=== PATIENT | female | born 1995 | race American Indian/Alaskan Native ===

== ENCOUNTER 2018-03-19 13:41 | Emergency (ER) | payer OTHER, SELFPAY ==
--- OUTSIDE RECORDS SUMMARY | 2018-03-19 13:45 | XMS REPORT ---
:1995 Author Organization eClinicalWorks Care Team Providers Name Role Phone Elayne Elizabeth Provider Role Unavailable Allergies No Known Allergies Problems Problem Type Condition Code Onset Dates Condition Status Assessment -induced hypertension in O13.3 Active third trimester Problem Obesity affecting in O99.213 Active third trimester Problem High-risk in third O09.93 Active trimester Problem -induced hypertension in O13.3 Active third trimester Assessment Obesity affecting in O99.213 Active third trimester Assessment High-risk in third O09.93 Active trimester Problem Abnormal 1st trimester screen O28.9 Active Problem Alpha thalassemia trait D56.3 Active Medications Medication Code Code Instructions Start End Status Dosage System Date Date CitraNatal [facility] [id number] 35-1 & 300 MG August Active as directed Assure Orally once 2017 daily Results No Known Results Summary Purpose eClinicalWorks Submission
--- OUTSIDE RECORDS SUMMARY | 2018-03-19 13:46 | XMS REPORT ---
:1995 Author Organization eClinicalWorks Care Team Providers Name Role Phone Asa Marie Provider Role Unavailable Allergies, Adverse Reactions, Alerts Substance Reaction Event Type N.K.D.A. Info Not Available Non Drug Allergy Problems Problem Type Condition Code Onset Dates Condition Status Problem Alpha thalassemia trait D56.3 Active Problem High-risk in third O09.93 Active trimester Problem Abnormal 1st trimester screen O28.9 Active Problem Other chronic pain G89.29 Active Problem Dorsalgia, unspecified M54.9 Active Problem Encounter for routine Z39.2 Active follow-up Problem -induced hypertension in O13.3 Active third trimester Problem Obesity affecting in O99.213 Active third trimester Problem Encounter for initial prescription Z30.011 Active of contraceptive pills Problem Encounter for care of Z39.1 Active lactating mother Assessment Encounter for initial prescription Z30.011 Active of contraceptive pills Assessment Encounter for routine Z39.2 Active follow-up Assessment Other chronic pain G89.29 Active Assessment Encounter for care of Z39.1 Active lactating mother Assessment Dorsalgia, unspecified M54.9 Active Medications Medication Code System Code Instructions Start Date End Date Status Dosage Marta NDC 0 Active not defined Results Name Result Date Reference Range Unit Abnormality Flag URINALYSIS AUTO W/O SCOPE (83024) ----NIT neg 20180124 ----URO 0.2 20180124 ----PROTEIN belkis 20180124 ----pH 6.0 20180124 ----BLO neg 20180124 ----GLUCOSE neg 20180124 ----ALEXANDRA neg 20180124 ----BILIRUBIN neg 20180124 ----KETONES neg 20180124 ----SPECIFIC GRAVITY 1.010 20180124 TEST URINE ----RESULTS neg 20180128 Summary Purpose eClinicalWorks Submission
[2018-03-19] MEDS ORDERED: KETOROLAC 30 MG/ML INJ ONE (14:47)
--- NOTE | 2018-03-19 14:50 | RAD REPORT ---
EXAM DESCRIPTION: CT - Abdomen Pelvis Wo Contrast - 03/19/2018 2:41 pm CLINICAL HISTORY: Abdominal pain. L flank pain COMPARISON: No comparisons TECHNIQUE: CT imaging of the abdomen and pelvis was performed without contrast. Solid organ, bowel a nd vascular assessment is limited due to lack of IV and oral contrast. All CT scans are performed using dose optimization technique as appropriate and may include automated exposure control or mA/KV adjustment according to patient size. FINDINGS: The lower lung english are clear. The liver, spleen, pancreas, adrenal glands and kidneys are within normal limits for a limited non-co ntrast examination. No bowel obstruction, free air, free fluid or abscess. The appendix is normal. The osseous structures are within normal limits. IMPRESSION: No acute intra-abdominal or pelvic findings. A limited non-contrast examination was performed as detailed.
[2018-03-19 14:56] LABS: Urine Blood NEGATIVE (NEG); Urine Glucose NEGATIVE (NEG); Urine Protein NEGATIVE (NEG); Urine Specific Gravity 1.025 (1.005-1.030); Urine pH 7.5 (5.0-7.0)
[2018-03-19 15:10] LABS: Absolute Lymphocytes (CBC) 1.8 K/uL (0.7-4.9); Absolute Monocytes 0.8 K/uL (0.1-1.3); Absolute Neutrophil 8.4 K/uL (1.8-8.0); Basophils % 0.4 % (0-1.3); Eosinophils % 1.2 % (0-4.4); Hematocrit 42.4 % (36.0-45.0); Lymphocytes % 15.9 % (15.3-44.8); MCH 25.9 pg (27.0-35.0); MCV 79.5 fL (80-100); MPV 8.8 fL (7.6-11.3); Monocytes % 7.1 % (3.3-12.3); RBC Red Blood Cell Count 5.33 M/uL (3.86-4.86)
[2018-03-19 15:27] LABS: Urine Bacteria <20 /HPF (<20); Urine Culture Reflex Order NOT NEEDED; Urine RBC <5 /HPF (NONE SEEN)
[2018-03-19 15:28] LABS: Albumin 3.8 g/dL (3.4-5.0); Bilirubin Direct 0.1 mg/dL (0-0.2); Bilirubin Total 0.4 mg/dL (0.2-1.0); Potassium 3.7 mmol/L (3.5-5.1)
--- NOTE | 2018-03-19 16:33 | EDPHYS ---
Physician Documentation [facility] Name: Maverick Bernstein Age: 22 yrs Sex: Female : 1995 Arrival Date: 03/19/2018 Time: 13:44 Bed 20 Private MD: None, None ED Physician Konrad Mitchell HPI: 03/19 16:24 This 22 yrs old Female presents to ER via Ambulatory with complaints of wa Abdominal Pain. 16:24 The patient complains of pain in the left flank. wa 16:25 The patient complains of pain in the left flank. The pain does not radiate. Onset: The wa symptoms/episode began/occurred on and off x several weeks. worse x 2 days. assoc with blood in urine today. c/o nausea. denies vomiting. admits to loose stools today. Modifying factors: The symptoms are alleviated by nothing. the symptoms are aggravated by urination. Associated signs and symptoms: Pertinent positives: diarrhea, hematuria, nausea, Pertinent negatives: dizziness, dysuria, fever, urinary frequency, headache, vomiting. Severity of pain: At its worst the pain was moderate in the emergency department the pain is unchanged. The patient has not experienced similar symptoms in the past. The patient has not recently seen a physician. TSO: 14:02 LMP 03/03/2018 sg Historical: - Allergies: 14:02 No Known Allergies; sg - Home Meds: 14:02 None [Active]; sg - PMHx: 14:02 None; sg - PSHx: 14:02 None; sg - Immunization history:: Adult Immunizations up to date. - Social history:: Smoking status: Patient/guardian denies using tobacco. - Ebola Screening: : Patient negative for fever greater than or equal to 101.5 degrees Fahrenheit, and additional compatible Ebola Virus Disease symptoms Patient denies exposure to infectious person Patient denies travel to an Ebola-affected area in the 21 days before illness onset No symptoms or risks identified at this time. ROS: 16:27 Constitutional: Negative for fever, chills, and weight loss, Eyes: Negative for injury, wa pain, redness, and discharge, ENT: Negative for injury, pain, and discharge, Neck: Negative for injury, pain, and swelling, Cardiovascular: Negative for chest pain, palpitations, and edema, Respiratory: Negative for shortness of breath, cough, wheezing, and pleuritic chest pain, Back: Negative for injury and pain, MS/Extremity: Negative for injury and deformity, Skin: Negative for injury, rash, and discoloration, Neuro: Negative for headache, weakness, numbness, tingling, and seizure. 16:27 Abdomen/GI: Positive for nausea, diarrhea, L flank pain, Negative for vomiting. 16:27 : Positive for blood in UA. 16:27 All other systems are negative. Exam: 16:28 Constitutional: This is a well developed, well nourished patient who is awake, alert, wa and in no acute distress. Head/Face: Normocephalic, atraumatic. Eyes: Pupils equal round and reactive to light, extra-ocular motions intact. Lids and lashes normal. Conjunctiva and sclera are non-icteric and not injected. Cornea within normal limits. Periorbital areas with no swelling, redness, or edema. ENT: Nares patent. No nasal discharge, no septal abnormalities noted. Tympanic membranes are normal and external auditory canals are clear. Oropharynx with no redness, swelling, or masses, exudates, or evidence of obstruction, uvula midline. Mucous membranes moist. Neck: Trachea midline, no thyromegaly or masses palpated, and no cervical lymphadenopathy. Supple, full range of motion without nuchal rigidity, or vertebral point tenderness. No Meningismus. Chest/axilla: Normal chest wall appearance and motion. Nontender with no deformity. No lesions are appreciated. Cardiovascular: Regular rate and rhythm with a normal S1 and S2. No gallops, murmurs, or rubs. Normal PMI, no JVD. No pulse deficits. Respiratory: Lungs have equal breath sounds bilaterally, clear to auscultation and percussion. No rales, rhonchi or wheezes noted. No increased work of breathing, no retractions or nasal flaring. Back: No spinal tenderness. No costovertebral tenderness. Full range of motion. Skin: Warm, dry with normal turgor. Normal color with no rashes, no lesions, and no evidence of cellulitis. MS/ Extremity: Pulses equal, no cyanosis. Neurovascular intact. Full, normal range of motion. Neuro: Awake and alert, GCS 15, oriented to person, place, time, and situation. Cranial nerves II-XII grossly intact. Motor strength 5/5 in all extremities. Sensory grossly intact. Cerebellar exam normal. Normal gait. Psych: Awake, alert, with orientation to person, place and time. Behavior, mood, and affect are within normal limits. 16:28 Abdomen/GI: Inspection: abdomen appears normal, Bowel sounds: normal, in all quadrants, Palpation: soft, in all quadrants, mild abdominal tenderness, in the left flank, no appreciated organomegaly. 16:28 : CVA tenderness, is absent, Pelvic Exam: External exam: is normal, Speculum exam: no cervicitis, os that is closed, mild blood-tinged mucous discharge noted. Vital Signs: 14:02 Pulse 87; Resp 16 S; Temp 98.7; Pulse Ox 100% on R/A; Weight 102.06 kg (R); Pain 7/10; sg 15:00 BP 126 / 76; Pulse 82; Resp 15; Pulse Ox 100% on R/A; hb MDM: 13:51 Patient medically screened. az 16:31 Differential diagnosis: nephrolithiasis, pyelonephritis, UTI. Data reviewed: vital az signs, nurses notes. Test interpretation: by ED physician or midlevel provider: labs note wnl. CT abd/pelvis: no acute process. Response to treatment: the patient's symptoms have markedly improved after treatment. 03/19 14:20 Order name: Basic Metabolic Panel 03/19 14:20 Order name: CBC with Diff 03/19 14:20 Order name: Hepatic Function 03/19 14:20 Order name: Lipase 03/19 14:20 Order name: Urine Microscopic Only; Complete Time: 16:06 03/19 14:21 Order name: Wet Prep 03/19 14:20 Order name: Urine Test (obtain specimen); Complete Time: 14:58 03/19 14:20 Order name: IV Saline Lock; Complete Time: 14:58 az 03/19 14:20 Order name: Labs collected and sent; Complete Time: 14:58 03/19 14:20 Order name: CT Abd/Pelvis - Without Cont; Complete Time: 14:59 az 03/19 14:21 Order name: GC (GONORR/CHLAMYDIA) Probe az 03/19 14:38 Order name: Urine Dipstick--Ancillary (enter results); Complete Time: 14:59 03/19 14:38 Order name: Urine --Ancillary (enter results); Complete Time: 14:59 bd 03/19 14:20 Order name: Urine Dipstick-Ancillary (obtain specimen); Complete Time: 14:58 az Administered Medications: 12:44 Drug: TORadol 30 mg Route: IVP; Site: right antecubital; hb 13:00 Follow up: Response: No adverse reaction; Pain is decreased hb Disposition: 03/19/18 16:32 Discharged to Home. Impression: Left flank pain, mild vaginal bleeding. - Condition is Stable. - Prescriptions for Ibuprofen 600 mg Oral Tablet - take 1 tablet by ORAL route every 8 hours As needed take with food; 20 tablet. - Medication Reconciliation Form, Thank You Letter, Antibiotic Education, Prescription Opioid Use form. - Follow up: Private Physician; When: 1 - 2 days; Reason: Re-evaluation by your physician. - Problem is new. - Symptoms have improved. - Notes: follow up with your doctor as discussed. return immediately if rapidly worsening concerns Signatures: Dispatcher [employer] EDWV Matt Espinal RN RN Marta Villa RN RN Konrad Mitchell MD MD wa Corrections: (The following items were deleted from the chart) 17:31 16:32 03/19/2018 16:32 Discharged to Home. Impression: Left flank pain; mild vaginal hb bleeding. Condition is Stable. Forms are Medication Reconciliation Form, Thank You Letter, Antibiotic Education, Prescription Opioid Use. Follow up: Private Physician; When: 1 - 2 days; Reason: Re-evaluation by your physician. Problem is new. Symptoms have improved. wa
--- NOTE | 2018-03-19 16:33 | ER ---
Nurse's Notes [facility] Name: Maverick Bernstein Age: 22 yrs Sex: Female : 1995 Arrival Date: 03/19/2018 Time: 13:44 Bed 20 Private MD: None, None Diagnosis: Left flank pain;mild vaginal bleeding Presentation: 03/19 14:00 Presenting complaint: Patient states: having left sided flank pain and blood in urine sg reported started today, reports nausea, denies v/f/d, reports having had loose stools today and decreased appetite. pain is described as cramping that is constant at this time. Transition of care: patient was not received from another setting of care. Onset of symptoms was March 19, 2018. Risk Assessment: Do you want to hurt yourself or someone else? Patient reports no desire to harm self or others. Initial Sepsis Screen: Does the patient meet any 2 criteria? No. Patient's initial sepsis screen is negative. Does the patient have a suspected source of infection? No. Patient's initial sepsis screen is negative. Care prior to arrival: None. 14:00 Method Of Arrival: Ambulatory sg 14:00 Acuity: FLORIAN 3 sg CAUL DRESSER: 14:02 LMP 03/03/2018 sg Historical: - Allergies: 14:02 No Known Allergies; sg - Home Meds: 14:02 None [Active]; sg - PMHx: 14:02 None; sg - PSHx: 14:02 None; sg - Immunization history:: Adult Immunizations up to date. - Social history:: Smoking status: Patient/guardian denies using tobacco. - Ebola Screening: : Patient negative for fever greater than or equal to 101.5 degrees Fahrenheit, and additional compatible Ebola Virus Disease symptoms Patient denies exposure to infectious person Patient denies travel to an Ebola-affected area in the 21 days before illness onset No symptoms or risks identified at this time. Screenin:15 Abuse screen: Denies threats or abuse. Denies injuries from another. Nutritional hb screening: No deficits noted. Tuberculosis screening: No symptoms or risk factors identified. Fall Risk None identified. Assessment: 14:30 Reassessment: Patient appears in no apparent distress at this time. No changes from hb previously documented assessment. Patient and/or family updated on plan of care and expected duration. Pain level reassessed. Patient is alert, oriented x 3, equal unlabored respirations, skin warm/dry/pink. 14:40 General: Appears in no apparent distress. Behavior is calm, cooperative. Pain: Pain hb currently is 8 out of 10 on a pain scale. Neuro: Level of Consciousness is awake, alert, obeys commands, Oriented to person, place, time, situation. Cardiovascular: Capillary refill < 3 seconds Patient's skin is warm and dry. Respiratory: Airway is patent Trachea midline Respiratory effort is even, unlabored, Respiratory pattern is regular, symmetrical. GI: Abdomen is non-distended, Bowel sounds present X 4 quads. Abd is soft and non tender X 4 quads. : Reports pain in left flank(s), in lower back urinary frequency. EENT: No signs and/or symptoms were reported regarding the EENT system. Derm: No signs and/or symptoms reported regarding the dermatologic system. Skin is intact, is healthy with good turgor, Skin is pink, warm \T\ dry. Musculoskeletal: No signs and/or symptoms reported regarding the musculoskeletal system. Vital Signs: 14:02 Pulse 87; Resp 16 S; Temp 98.7; Pulse Ox 100% on R/A; Weight 102.06 kg (R); Pain 7/10; sg 15:00 BP 126 / 76; Pulse 82; Resp 15; Pulse Ox 100% on R/A; hb ED Course: 13:44 Patient arrived in ED. sb2 13:44 None, None is Private Physician. sb2 13:51 Konrad Mitchell MD is Attending Physician. wa 14:01 Triage completed. sg 14:01 Arm band placed on. sg 14:14 Marta Villa, RN is Primary Nurse. hb 14:15 Patient has correct armband on for positive identification. Placed in gown. Bed in low hb position. Call light in reach. Side rails up X 1. 14:40 CT Abd/Pelvis - Without Cont In Process Unspecified. EDMS 14:45 Inserted saline lock: 22 gauge in right antecubital area, using aseptic technique. hb Blood collected. 15:32 Assist provider with pelvic exam: Set up pelvic tray. Performed by Konrad Mitchell MD hb Specimens sent to lab. Patient tolerated well. 17:20 IV discontinued, intact, bleeding controlled, No redness/swelling at site. Pressure hb dressing applied. Administered Medications: 12:44 Drug: TORadol 30 mg Route: IVP; Site: right antecubital; hb 13:00 Follow up: Response: No adverse reaction; Pain is decreased hb Outcome: 16:32 Discharge ordered by . marina 17:20 Discharged to home ambulatory, with family. 17:20 Condition: stable 17:20 Discharge instructions given to patient, Instructed on discharge instructions, follow up and referral plans. medication usage, Demonstrated understanding of instructions, follow-up care, medications, Prescriptions given X 1. 17:31 Patient left the ED. hb Signatures: Dispatcher [employer] EDMS Matt Espinal RN RN Marta Villa RN RN Konrad Mitchell MD MD wa Billeau, Sheri sb2
[2018-03-22 04:23] LABS: C.trachomatis RNA,TMA Not Detected (Not Detected)
== END 2018-03-19 17:31 | disposition home or self-care (01) ==
LOC: ER 13:41
DX: N93.9 Abnormal uterine and vaginal bleeding, unspecified (principal)
CPT/HCPCS: 36415; 74176; 80048; 80076; 81003; 81015; 81025; 83690; 85025; 87210; 87490; 87590; 96374; 99284

== ENCOUNTER 2018-09-15 20:48 | Observation (INO) | payer SELFPAY ==
--- OUTSIDE RECORDS SUMMARY | 2018-09-15 20:50 | XMS REPORT ---
[...] End Status Dosage System Date Date CitraNatal [facility] [id number] 35-1 & 300 MG August Active as directed Assure Orally once 2017 daily Results No Known Results Summary Purpose eClinicalWorks Submission
--- OUTSIDE RECORDS SUMMARY | 2018-09-15 20:50 | XMS REPORT ---
[...] Unit Abnormality Flag URINALYSIS AUTO W/O SCOPE (29699) ----NIT neg 20180124 ----URO 0.2 20180124 ----PROTEIN belkis 20180124 ----pH 6.0 20180124 ----BLO neg 20180124 ----GLUCOSE neg 20180124 ----ALEXANDRA neg 20180124 ----BILIRUBIN neg 20180124 ----KETONES neg 20180124 ----SPECIFIC GRAVITY 1.010 20180124 TEST URINE ----RESULTS neg 20180128 Summary Purpose eClinicalWorks Submission
[2018-09-16 01:11] LABS: Absolute Monocytes 0.6 K/uL (0.1-1.3); Absolute Neutrophil 11.7 K/uL (1.8-8.0); Basophils % 0.4 % (0-1.3); Eosinophils % 0.5 % (0-4.4); Hematocrit 45.7 % (36.0-45.0); MPV 8.9 fL (7.6-11.3); Monocytes % 4.2 % (3.3-12.3); RBC Red Blood Cell Count 5.58 M/uL (3.86-4.86)
[2018-09-16 01:32] LABS: BUN Blood Urea Nitrogen 10 mg/dL (7-18); Bicarbonate 25 mmol/L (21-32); Glucose Level 100 mg/dL (74-106); Potassium 3.9 mmol/L (3.5-5.1); Sodium Level 142 mmol/L (136-145)
[2018-09-16] MEDS ORDERED: NA CHLORIDE 0.9% 1,000 ML ONE ×3 (01:39→08:51)
[2018-09-16] MEDS ORDERED: PANTOPRAZOLE 40 MG INJ ONE (01:54)
[2018-09-16 03:51] LABS: Urine Blood TRACE (NEG); Urine Glucose NEGATIVE (NEG); Urine Protein NEGATIVE (NEG)
[2018-09-16] MEDS ORDERED: CEFTRIAXONE/SWI 1gm 1 GM/10 ML SYR ONE (04:57)
--- NOTE | 2018-09-16 06:22 | ER ---
Nurse's Notes [facility] Name: Maverick Bernstein Age: 23 yrs Sex: Female : 1995 Arrival Date: 09/15/2018 Time: 20:55 Bed 5 Private MD: Diagnosis: Chest pain;Foreign body sensation;tachycardia Presentation: 09/15 21:29 Presenting complaint: Patient states: sore throat, cough with mucous with blood tinge dm5 burning in lungs with deep breath. Transition of care: patient was not received from another setting of care. Onset of symptoms was September 10, 2018. Risk Assessment: Do you want to hurt yourself or someone else? Patient reports no desire to harm self or others. 21:29 Method Of Arrival: Ambulatory dm5 21:29 Acuity: FLORIAN 3 dm5 23:04 Initial Sepsis Screen: Does the patient meet any 2 criteria? HR > 90 bpm. Yes Does the ea patient have a suspected source of infection? Yes: Productive cough/pneumonia. Care prior to arrival: None. Triage Assessment: 21:31 General: Appears in no apparent distress. General: Behavior is calm, cooperative. Pain: dm5 Complains of pain in mid-sternal area Pain currently is 8 out of 10 on a pain scale. Quality of pain is described as burning, Is continuous. Neuro: No deficits noted. Cardiovascular: Reports burning sensation in chest. Respiratory: Airway is patent Respiratory effort is even, unlabored, relaxed, Respiratory pattern is regular. Derm: Skin is pink, warm \T\ dry. SURGICAL FIRST ASSISTANT: 21:31 LMP 09/06/2018 dm5 Historical: - Allergies: 21:31 No Known Allergies; dm5 - Home Meds: 21:31 None [Active]; dm5 - PMHx: 21:31 mono 04/19; dm5 - PSHx: 21:31 None; dm5 - Immunization history:: Adult Immunizations up to date, Flu vaccine is not up to date. - Social history:: Smoking status: Patient/guardian denies using tobacco. - Ebola Screening: : Patient negative for fever greater than or equal to 101.5 degrees Fahrenheit, and additional compatible Ebola Virus Disease symptoms Patient denies exposure to infectious person Patient denies travel to an Ebola-affected area in the 21 days before illness onset No symptoms or risks identified at this time. Screenin:03 Abuse screen: Denies threats or abuse. Nutritional screening: No deficits noted. ea Tuberculosis screening: No symptoms or risk factors identified. Fall Risk None identified. Assessment: 22:59 General: Appears in no apparent distress. Behavior is calm, cooperative, appropriate ea for age. Pain: Complains of pain in chest Pain radiates to back. Neuro: Level of Consciousness is awake, alert, obeys commands, Oriented to person, place, time, situation. Cardiovascular: Patient's skin is warm and dry. Respiratory: Airway is patent Respiratory effort is even, unlabored, Respiratory pattern is regular, symmetrical. Respiratory: Parent/caregiver reports the patient having cough that is hacking, persistent pain with cough. Derm: Skin is pink, warm \T\ dry. 09/16 00:50 Reassessment: Patient and/or family updated on plan of care and expected duration. Pain ea level reassessed. Patient is alert, oriented x 3, equal unlabored respirations, skin warm/dry/pink. 02:56 Reassessment: Patient and/or family updated on plan of care and expected duration. Pain ea level reassessed. Patient is alert, oriented x 3, equal unlabored respirations, skin warm/dry/pink. Returned form CT. 03:58 Reassessment: Patient and/or family updated on plan of care and expected duration. Pain ea level reassessed. Patient is alert, oriented x 3, equal unlabored respirations, skin warm/dry/pink. Awaiting on CT results. 04:50 Reassessment: Patient and/or family updated on plan of care and expected duration. Pain ea level reassessed. Patient is alert, oriented x 3, equal unlabored respirations, skin warm/dry/pink. 05:00 Reassessment: Patient and/or family updated on plan of care and expected duration. Pain ea level reassessed. Patient is alert, oriented x 3, equal unlabored respirations, skin warm/dry/pink. 06:45 Reassessment: Patient and/or family updated on plan of care and expected duration. Pain ea level reassessed. Patient is alert, oriented x 3, equal unlabored respirations, skin warm/dry/pink. 07:00 Pain: Pain began. hj 07:00 General: Appears in no apparent distress. uncomfortable, Behavior is calm, cooperative, hj appropriate for age. Pain: Complains of pain in back and chest and mid-sternal area. Neuro: Level of Consciousness is awake, alert, obeys commands, Oriented to person, place, time, situation, Appropriate for age. Cardiovascular: Capillary refill < 3 seconds Patient's skin is warm and dry. Respiratory: Airway is patent Respiratory effort is even, unlabored, Respiratory pattern is regular, symmetrical. GI: No signs and/or symptoms were reported involving the gastrointestinal system. : No signs and/or symptoms were reported regarding the genitourinary system. EENT: No signs and/or symptoms were reported regarding the EENT system. Derm: No signs and/or symptoms reported regarding the dermatologic system. Musculoskeletal: No signs and/or symptoms reported regarding the musculoskeletal system. 07:28 Reassessment: Patient appears in no apparent distress at this time. Patient and/or hb family updated on plan of care and expected duration. Pain level reassessed. Patient is alert, oriented x 3, equal unlabored respirations, skin warm/dry/pink. 08:37 Reassessment: shifted to ER hold;. hj Vital Signs: 09/15 21:31 BP 126 / 88; Pulse 122; Resp 16; Temp 98.5; Pulse Ox 98% on R/A; Weight 104.33 kg; dm5 Height 5 ft. 6 in. (167.64 cm); Pain 8/10; 23:04 BP 127 / 75; Pulse 120; Resp 20; Pulse Ox 97% on R/A; ea 23:43 BP 117 / 83; Pulse 115; Resp 20; Pulse Ox 96% on R/A; ea 09/16 00:51 BP 127 / 72; Pulse 120; Resp 17; Pulse Ox 99% ; ea 02:50 BP 124 / 64; Pulse 119; Resp 18; Pulse Ox 100% on R/A; ea 03:30 BP 133 / 65; Pulse 120; Resp 18; Pulse Ox 96% ; ea 04:40 BP 112 / 75; Pulse 114; Resp 20; Pulse Ox 98% on R/A; ea 06:30 BP 122 / 67; Pulse 115; Resp 19; Pulse Ox 98% on R/A; ea 07:28 BP 112 / 72; Pulse 100; Resp 18; Pulse Ox 99% on R/A; hb 09/15 21:31 Body Mass Index 37.12 (104.33 kg, 167.64 cm) dm5 ED Course: 09/15 20:55 Patient arrived in ED. am2 21:30 Triage completed. dm5 21:31 Arm band placed on. dm5 22:59 Denise Chris RN is Primary Nurse. ea 23:03 Patient has correct armband on for positive identification. Bed in low position. Call ea light in reach. Side rails up X2. 23:03 watch repair technician on. Pulse ox on. NIBP on. ea 23:03 Patient maintains SpO2 saturation greater than 95% on room air. ea 09/16 00:06 Dang Rodriguez FNP-C is PHCP. snw 00:06 Calixto Howard MD is Attending Physician. snw 00:31 X-ray completed. Portable x-ray completed in exam room. Patient tolerated procedure sg4 well. 00:33 Chest Single View XRAY In Process Unspecified. EDMS 02:[address] via wheelchair. kw1 03:49 CT Soft Tissue Neck W/contr In Process Unspecified. EDMS 06:20 Alex Gregory MD is Hospitalizing Provider. ps1 06:55 No provider procedures requiring assistance completed. Patient admitted, IV remains in ea place. 07:02 Report given to Jhonny ROCHA. ea Administered Medications: 01:31 Drug: NS 0.9% 1000 ml Route: IV; Rate: 1 bolus; Site: right antecubital; ea 03:00 Follow up: Response: No adverse reaction; IV Status: Completed infusion; IV Intake: ea 1000ml 01:35 Drug: ProTONIX 40 mg Route: IVP; Site: right antecubital; ea 02:00 Follow up: Response: No adverse reaction ea 04:50 Drug: NS 0.9% 1000 ml Route: IV; Rate: 1 bolus; Site: right antecubital; ea 08:05 Follow up: IV Status: Completed infusion; IV Intake: 1000ml hj 04:50 Drug: Rocephin - (cefTRIAXone) 1 grams Route: IVPB; Infused Over: 30 mins; Site: right ea antecubital; 07:00 Follow up: IV Status: Completed infusion hj 07:12 Drug: morphine 4 mg Route: IVP; Site: right antecubital; hj 07:18 Follow up: Response: No adverse reaction; Pain is decreased hj Intake: 03:00 IV: 1000ml; Total: 1000ml. ea 08:05 IV: 1000ml; Total: 2000ml. ponce Outcome: 06:21 Decision to Hospitalize by Provider. ps1 07:02 Instructed on the need for admit. ea 12:46 Admitted to Tele accompanied by tech, family with patient, via stretcher, room 430, ponce with chart, Report called to JOSEFINA Redman 12:46 Condition: stable 12:46 Instructed on Demonstrated understanding of instructions. 12:48 Patient left the ED. ponce Signatures: Dispatcher [employer] EDMS Belia Perrin, RN RN dm5 Dang Rodriguez, PARKING LOT SPOTTER-C PARKING LOT SPOTTER-Csnw Jhonny Gamez RN RN hj Baxter, Heather RN Dipika Carlos am2 Denise Chris RN Calixto Mcelroy ea, MD MD ps1 Eugenia Estrella1 Fara Cardoza sg4 Corrections: (The following items were deleted from the chart) 09/15 21:32 21:29 Presenting complaint: Patient states: sore throat, cough with mucous with blood dm5 tinge dm5
--- NOTE | 2018-09-16 06:22 | EDPHYS ---
Physician Documentation [facility] Name: Maverick Bernstein Age: 23 yrs Sex: Female : 1995 Arrival Date: 09/15/2018 Time: 20:55 Bed 5 Private MD: ED Physician Calixto Howard HPI: 09/16 01:25 This 23 yrs old Female presents to ER via Ambulatory with complaints of snw Chest Pain - burning sensation. 01:25 Pt states she had [place] in April and has felt foreign body sensation since, c/o snw burning in chest, increase in indigestion. Onset: The symptoms/episode began/occurred gradually, 1 month(s) ago, and became persistent. Severity of symptoms: At their worst the symptoms were moderate in the emergency department the symptoms are unchanged. It is unknown whether or not the patient has had similar symptoms in the past. It is unknown whether or not the patient has recently seen a physician. CLAIM SPECIALIST: 09/15 21:31 LMP 09/06/2018 dm5 Historical: - Allergies: 21:31 No Known Allergies; dm5 - Home Meds: 21:31 None [Active]; dm5 - PMHx: 21:31 mono 04/19; dm5 - PSHx: 21:31 None; dm5 - Immunization history:: Adult Immunizations up to date, Flu vaccine is not up to date. - Social history:: Smoking status: Patient/guardian denies using tobacco. - Ebola Screening: : Patient negative for fever greater than or equal to 101.5 degrees Fahrenheit, and additional compatible Ebola Virus Disease symptoms Patient denies exposure to infectious person Patient denies travel to an Ebola-affected area in the 21 days before illness onset No symptoms or risks identified at this time. ROS: 09/16 01:24 Constitutional: Negative for fever, chills, and weight loss, Eyes: Negative for injury, snw pain, redness, and discharge, Neck: Negative for injury, pain, and swelling, Cardiovascular: Negative for chest pain, palpitations, and edema, Respiratory: Negative for shortness of breath, cough, wheezing, and pleuritic chest pain, Abdomen/GI: Negative for abdominal pain, nausea, vomiting, diarrhea, and constipation, Back: Negative for injury and pain, : Negative for injury, bleeding, discharge, and swelling, MS/Extremity: Negative for injury and deformity, Skin: Negative for injury, rash, and discoloration, Neuro: Negative for headache, weakness, numbness, tingling, and seizure. ENT: Positive for foreign body sensation, sinus congestion, sore throat. Exam: 01:23 Head/Face: Normocephalic, atraumatic. Eyes: Pupils equal round and reactive to light, snw extra-ocular motions intact. Lids and lashes normal. Conjunctiva and sclera are non-icteric and not injected. Cornea within normal limits. Periorbital areas with no swelling, redness, or edema. 01:23 Neck: Trachea midline, no thyromegaly or masses palpated, and no cervical lymphadenopathy. Supple, full range of motion without nuchal rigidity, or vertebral point tenderness. No Meningismus. Chest/axilla: Normal chest wall appearance and motion. Nontender with no deformity. No lesions are appreciated. 01:23 Respiratory: Lungs have equal breath sounds bilaterally, clear to auscultation and percussion. No rales, rhonchi or wheezes noted. No increased work of breathing, no retractions or nasal flaring. Abdomen/GI: Soft, non-tender, with normal bowel sounds. No distension or tympany. No guarding or rebound. No evidence of tenderness throughout. Back: No spinal tenderness. No costovertebral tenderness. Full range of motion. Skin: Warm, dry with normal turgor. Normal color with no rashes, no lesions, and no evidence of cellulitis. MS/ Extremity: Pulses equal, no cyanosis. Neurovascular intact. Full, normal range of motion. Neuro: Awake and alert, GCS 15, oriented to person, place, time, and situation. Cranial nerves II-XII grossly intact. Motor strength 5/5 in all extremities. Sensory grossly intact. Cerebellar exam normal. Normal gait. Psych: Awake, alert, with orientation to person, place and time. Behavior, mood, and affect are within normal limits. 01:23 Constitutional: The patient appears alert, awake, anxious, obese. 01:23 ENT: TM's: are normal, Nose: is normal, Mouth: Oral mucosa: moist, Posterior pharynx: erythema, that is moderate, Voice: is normal. 01:23 Cardiovascular: Rate: tachycardic, Heart sounds: normal. Vital Signs: 09/15 21:31 BP 126 / 88; Pulse 122; Resp 16; Temp 98.5; Pulse Ox 98% on R/A; Weight 104.33 kg; dm5 Height 5 ft. 6 in. (167.64 cm); Pain 8/10; 23:04 BP 127 / 75; Pulse 120; Resp 20; Pulse Ox 97% on R/A; ea 23:43 BP 117 / 83; Pulse 115; Resp 20; Pulse Ox 96% on R/A; ea 09/16 00:51 BP 127 / 72; Pulse 120; Resp 17; Pulse Ox 99% ; ea 02:50 BP 124 / 64; Pulse 119; Resp 18; Pulse Ox 100% on R/A; ea 03:30 BP 133 / 65; Pulse 120; Resp 18; Pulse Ox 96% ; ea 04:40 BP 112 / 75; Pulse 114; Resp 20; Pulse Ox 98% on R/A; ea 06:30 BP 122 / 67; Pulse 115; Resp 19; Pulse Ox 98% on R/A; ea 07:28 BP 112 / 72; Pulse 100; Resp 18; Pulse Ox 99% on R/A; hb 09/15 21:31 Body Mass Index 37.12 (104.33 kg, 167.64 cm) dm5 MDM: 00:09 Patient medically screened. snw 02:21 Data reviewed: vital signs, nurses notes. Data interpreted: Pulse oximetry: on room air snw is 99 %. Interpretation: normal. Counseling: I had a detailed discussion with the patient and/or guardian regarding: lab results, radiology results. Response to treatment: There is no appreciated change of the patient's symptoms at this time, the patient continues to show tachycardia, will CT soft tissue neck. Physician consultation: Calixto Howard MD regarding patient's condition. 03:17 Physician consultation:. Transition of care: After a detail discussion of the patient's snw case, care is transferred to Calixto Howard MD. 09/15 21:34 Order name: Flu; Complete Time: 00:06 dm5 09/15 21:37 Order name: Strep; Complete Time: 00:06 dm5 09/15 23:42 Order name: Throat Culture EDMS 09/16 00:27 Order name: CBC with Diff; Complete Time: 01:22 snw 09/16 00:27 Order name: Chem 7; Complete Time: 02:01 snw 09/16 00:27 Order name: TSH; Complete Time: 02:01 snw 09/16 00:27 Order name: DD; Complete Time: 01:22 snw 09/16 02:19 Order name: Urine Dipstick--Ancillary (enter results); Complete Time: 03:53 lt1 09/16 02:20 Order name: Urine --Ancillary (enter results); Complete Time: 03:53 lt1 09/16 06:35 Order name: CBC with Automated Diff EDMS 09/16 06:35 Order name: CBC with Automated Diff EDMS 09/16 06:35 Order name: Comprehensive Metabolic Panel EDMS 09/16 06:35 Order name: Comprehensive Metabolic Panel EDMS 09/16 06:35 Order name: Protime (+INR) EDMS 09/15 23:59 Order name: Chest Single View XRAY; Complete Time: 15:06 ea 09/16 02:07 Order name: CT Soft Tissue Neck W/contr snw 09/16 06:35 Order name: Protime (+INR) EDMS 09/16 06:35 Order name: PTT, Activated Partial Thromb EDMS 09/16 06:35 Order name: PTT, Activated Partial Thromb EDMS 09/16 06:35 Order name: Troponin I EDMS 09/16 06:35 Order name: Troponin I; Complete Time: 15:06 EDMS 09/16 06:35 Order name: Troponin I; Complete Time: 15:52 EDMS 09/16 06:35 Order name: CBC with Automated Diff; Complete Time: 15:06 EDMS 09/16 06:35 Order name: Comprehensive Metabolic Panel; Complete Time: 15:06 EDMS 09/16 06:35 Order name: Magnesium; Complete Time: 15:06 EDMS 09/16 06:35 Order name: Phosphorus; Complete Time: 15:06 EDMS 09/16 06:35 Order name: T4 Free; Complete Time: 15:06 EDMS 09/16 06:35 Order name: Thyroid Stimulating Hormone; Complete Time: 15:06 EDMS 09/16 06:37 Order name: Chest For Pe Angio EDMS 09/16 06:38 Order name: Echo with Doppler EDMS 09/16 00:27 Order name: SL; Complete Time: 00:34 snw 09/16 06:35 Order name: CONS Pharmacy Consult EDMS 09/16 06:35 Order name: Heart Healthy EDCO Administered Medications: 01:31 Drug: NS 0.9% 1000 ml Route: IV; Rate: 1 bolus; Site: right antecubital; ea 03:00 Follow up: Response: No adverse reaction; IV Status: Completed infusion; IV Intake: ea 1000ml 01:35 Drug: ProTONIX 40 mg Route: IVP; Site: right antecubital; ea 02:00 Follow up: Response: No adverse reaction ea 04:50 Drug: NS 0.9% 1000 ml Route: IV; Rate: 1 bolus; Site: right antecubital; ea 08:05 Follow up: IV Status: Completed infusion; IV Intake: 1000ml hj 04:50 Drug: Rocephin - (cefTRIAXone) 1 grams Route: IVPB; Infused Over: 30 mins; Site: right ea antecubital; 07:00 Follow up: IV Status: Completed infusion hj 07:12 Drug: morphine 4 mg Route: IVP; Site: right antecubital; hj 07:18 Follow up: Response: No adverse reaction; Pain is decreased hj Disposition: 04:33 Co-signature as Attending Physician, Calixto Howard MD I agree with the assessment and ps1 plan of care. Attestation: The patient's history, exam findings, diagnostics, and a summary of any interventions or procedures was reviewed in detail with Dang EDWARD. Disposition: 09/16/18 06:21 Hospitalization ordered by Alex Gregory for Observation. Preliminary diagnosis are Chest pain, Foreign body sensation, tachycardia. - Bed requested for Telemetry/MedSurg (observation). - Status is Observation. hj - Condition is Fair. - Problem is new. - Symptoms are unchanged. UTI on Admission? No Signatures: Dispatcher [employer] [facility] Belia Perrin RN Lorena Mckenzie RN Dang Granado FNP-C FNP-CsnRex Mcfarlane MD MD rn Joaquin, Henry, RN RN hj Antunez, Elena, RN RN ea Singer, Phillip, MD MD ps1 Botello, Elizabeth eb Corrections: (The following items were deleted from the chart) 08:32 06:21 Hospitalization Ordered by Alex Gregory MD for Observation. Preliminary eb diagnosis is Chest pain; Foreign body sensation; tachycardia. Bed requested for Telemetry/MedSurg (observation). Status is Observation. Condition is Fair. Problem is new. Symptoms are unchanged. UTI on Admission? No. ps1 11:28 08:32 09/16/2018 06:21 Hospitalization Ordered by Alex Gregory MD for Observation. dw Preliminary diagnosis is Chest pain; Foreign body sensation; tachycardia. Bed requested for [facility] ER HOLD. Status is Observation. Condition is Fair. Problem is new. Symptoms are unchanged. UTI on Admission? No. eb 12:48 11:28 09/16/2018 06:21 Hospitalization Ordered by Alex Gregory MD for Observation. hj Preliminary diagnosis is Chest pain; Foreign body sensation; tachycardia. Bed requested for Telemetry/MedSurg (observation). Status is Observation. Condition is Fair. Problem is new. Symptoms are unchanged. UTI on Admission? No. dw
[2018-09-16] MEDS ORDERED: ONDANSETRON 4 MG/2 ML VIAL IV PRN (06:30)
[2018-09-16] MEDS: NA CHLORIDE 0.9% 1,000 ML IV SCH ×3 (07:00→20:30)
[2018-09-16] MEDS ORDERED: MORPHINE 4 MG/ML SYR ONE (07:26)
[2018-09-16 08:55] VITALS: BMI 37.0
--- NOTE | 2018-09-16 09:18 | RAD REPORT ---
EXAM DESCRIPTION: Cecy Single View09/16/2018 12:34 am CLINICAL HISTORY: cough COMPARISON: none FINDINGS: The lungs appear clear of acute infiltrate. The heart is normal size IMPRESSION: No acute abnormalities displayed
--- NOTE | 2018-09-16 12:25 | EKG ---
Test Date: 2018-09-16 Test Time: 00:07:42 Automatic Car Wash Attendant: HAILEE MEASUREMENT RESULTS: Intervals: Rate: 121 MA: 168 QRSD: 78 QT: 282 QTc: 400 [place]: P: -22 MA: 168 QRS: 139 T: 85 INTERPRETIVE STATEMENTS: Sinus tachycardia Right axis deviation Nonspecific T wave abnormality Abnormal ECG Compared to ECG 09/07/2017 19:30:05 Right-axis deviation now present T-wave abnormality now present Sinus rhythm no longer present Electronically Signed On 09-16-18 12:24:13 CDT by Shubham Gonzales
[2018-09-16 12:59] LABS: Absolute Lymphocytes (CBC) 3.1 K/uL (0.7-4.9); Absolute Monocytes 0.8 K/uL (0.1-1.3); Basophils % 0.8 % (0-1.3); Eosinophils % 1.1 % (0-4.4); Hematocrit 39.8 % (36.0-45.0); Lymphocytes % 23.6 % (15.3-44.8); MPV 8.6 fL (7.6-11.3); Monocytes % 6.3 % (3.3-12.3); RBC Red Blood Cell Count 4.88 M/uL (3.86-4.86)
[2018-09-16 13:29] LABS: ALT/SGPT 23 U/L (12-78); AST/SGOT 12 U/L (15-37); Albumin 3.3 g/dL (3.4-5.0); Alkaline Phosphatase 154 U/L (45-117); BUN Blood Urea Nitrogen 9 mg/dL (7-18); Bicarbonate 26 mmol/L (21-32); Bilirubin Total 0.6 mg/dL (0.2-1.0); Glucose Level 102 mg/dL (74-106); Magnesium 1.9 mg/dL (1.8-2.4); Phosphorus 3.1 mg/dL (2.5-4.9); Potassium 3.9 mmol/L (3.5-5.1); Protein, Total 6.8 g/dL (6.4-8.2); Sodium Level 143 mmol/L (136-145); Troponin I < 0.02 ng/mL (0.0-0.045)
--- NOTE | 2018-09-16 13:35 | P.HP ---
Certification for Inpatient Patient admitted to: Observation With expected LOS: <2 Midnights Patient will require the following post-hospital care: None Practitioner: I am a practitioner with admitting privileges, knowledge of patient current condition, hospital course, and medical plan of care. Services: Services provided to patient in accordance with Admission requirements found in Title 42 Section 412.3 of the Code of Federal Regulations Patient History Date of Service: 09/16/18 Reason for admission: palpitations / shortness of breath/ chest pain / febrile History of Present Illness: Patient is a 23-year-old female who came to the hospital with chest discomfort. Pain was mainly in the sternal region. Patient also has been feeling febrile and short of breath. She states she is not really able to take a deep breath. She has felt like she has been having palpitations as well. She came to the hospital for further evaluation. In the emergency room her workup revealed that she has sinus tachycardia. She had an EKG done which confirmed this. Chest x-ray was negative. There may have been some questionable right lower lobe haziness and will or going to wait for official radiology report. Patient had pain on deep inspiration. She just had a child about 9 months ago. She traveled to [place] about a month ago where she ended up in the hospital because of fever and weakness. She pretty much had similar complaints. At that time she was told she had a leukocytosis. She was also diagnosed with infectious mononucleosis. She was given prednisone which she really did not take as prescribed. She came back to the [facility] where she lives. She has been feeling well since that time. She eventually ended up with Oral symptoms as above and came to our hospital. We will observe her and do further testing to try to diagnose exactly was causing her symptoms. Will try to get her tachycardia controlled. She will need workup to reveal causes sinus tachycardia. We will admit her for observation. Allergies No Known Allergies Allergy (Unverified 01/11/16 22:39) Home Medications: NK [No Home Meds] 09/16/18 - Past Medical/Surgical History Has patient received pneumonia vaccine in the past: Yes -: infectious mononucleosis -: normal vaginal delivery Past Surgical History: Patient denies surgical history - Family History Father History Unknown: Yes - Social History Smoking Status: Never smoker Alcohol use: No CD- Drugs: No Place of Residence: Home Review of Systems 10-point ROS is otherwise unremarkable Physical Examination - Vital Signs Temperature: 98.1 F Blood Pressure: 100/70 Pulse: 86 Respirations: 18 Pulse Ox (%): 100 - Physical Exam General: Alert, In no apparent distress, Oriented x3 HEENT: Atraumatic, PERRLA, Mucous membr. moist/pink, EOMI, Sclerae nonicteric Neck: Supple, 2+ carotid pulse no bruit, No LAD, Without JVD or thyroid abnormality Respiratory: Normal air movement, Diminished Cardiovascular: Other ( tachycardic no murmur) Gastrointestinal: Normal bowel sounds, Soft and benign, Non-distended, No tenderness Musculoskeletal: No clubbing, No swelling, No tenderness Integumentary: No rashes Neurological: Normal gait, Normal speech, Normal strength at 5/5 x4 extr, Normal tone, Sensation intact, Cranial nerves 3-12 intact, Normal affect Lymphatics: No axilla or inguinal lymphadenopathy - Studies Laboratory Data (last 24 hrs) 09/16/18 00:28: Sodium 142, Potassium 3.9, BUN 10, Creatinine 0.71, Glucose 100 09/16/18 00:28: WBC 14.5 H, Hgb 14.8, Hct 45.7 H, Plt Count 343 Microbiology Data (last 24 hrs): 09/15/18 21:34 Nasopharnyx Influenza Type A Antigen Screen - Final 09/15/18 21:34 Nasopharnyx Influenza Type B Antigen Screen - Final 09/15/18 21:37 Throat Group A Streptococcus Rapid Screen - Final Assessment & Plan - Problems (Diagnosis) (1) History of infectious mononucleosis Current Visit: Yes Status: Acute (2) Sinus tachycardia Current Visit: Yes Status: Acute (3) Chest pain, rule out acute myocardial infarction Current Visit: Yes Status: Acute (4) Pleuritic pain Current Visit: Yes Status: Acute (5) Morbid obesity Current Visit: Yes Status: Acute - Plan 1. Serial troponins and EKG 2. may do a CT of the chest in the morning to evaluate for possible pulmonary embolism. D-dimer pending 3. Echocardiogram and thyroid studies 4. Anti-platelet therapy, and may add a low-dose beta-lala 5. recheck labs as well as LFTs with her history of infectious mononucleosis recently 6. GI DVT prophylaxis Discharge Plan: Home Plan to discharge in: 24 Hours - Advance Directives Does patient have a Living Will: No Does patient have a Durable POA for Healthcare: No - Code Status/Comfort Care Code Status Assessed: Yes Code Status: Full Code Critical Care: No Time Spent Managing PTS Care (In Minutes): 45
[2018-09-16] MEDS: ACETAMINOPHEN 500 MG TAB PO PRN (14:12)
[2018-09-17 05:01] LABS: Protime INR 1.08
[2018-09-17 05:07] LABS: ALT/SGPT 18 U/L (12-78); AST/SGOT 14 U/L (15-37); Alkaline Phosphatase 138 U/L (45-117); BUN Blood Urea Nitrogen 7 mg/dL (7-18); Bicarbonate 22 mmol/L (21-32); Bilirubin Total 0.3 mg/dL (0.2-1.0); Glucose Level 92 mg/dL (74-106); Potassium 4.1 mmol/L (3.5-5.1); Protein, Total 6.3 g/dL (6.4-8.2); Sodium Level 144 mmol/L (136-145)
[2018-09-17 06:10] LABS: Absolute Lymphocytes (CBC) 2.7 K/uL (0.7-4.9); Absolute Monocytes 0.7 K/uL (0.1-1.3); Absolute Neutrophil 7.4 K/uL (1.8-8.0); Basophils % 0.7 % (0-1.3); Eosinophils % 1.5 % (0-4.4); Hematocrit 40.1 % (36.0-45.0); Lymphocytes % 24.6 % (15.3-44.8); MPV 8.8 fL (7.6-11.3); RBC Red Blood Cell Count 4.91 M/uL (3.86-4.86)
[2018-09-17] MEDS: MORPHINE 4 MG/ML SYR IV PRN (07:24)
[2018-09-17] MEDS: NA CHLORIDE 0.9% 1,000 ML IV SCH ×2 (09:11→21:37)
--- NOTE | 2018-09-17 10:22 | RAD REPORT ---
EXAM DESCRIPTION: CT - Chest For Pe Angio - 09/17/2018 8:54 am CLINICAL HISTORY: Chest pain COMPARISON: None. TECHNIQUE: Dynamically enhanced axial 3 mm thick images of the chest were obtained during administra tion of <100> mL Isovue 370 IV contrast. Coronal and oblique reconstruction images were generated and reviewed. Exam utilizes a protocol for optimal evaluation of pulmonary arterial tree. Maximum intensity projections 3D imaging was utilized All CT scans are performed using dose optimization technique as appropriate and may include automated exposure control or mA/KV adjustment according to patient size. FINDINGS: A pulmonary embolus is not seen. A thoracic aortic aneurysm is not noted. A pleural effusion is not seen. A pericardial effusion is not seen. A lung consolidation is not present. Mild ground-glass opacities within the lower lobes IMPRESSION: Negative for a pulmonary embolism. Mild bilateral lower lobe alveolitis
--- NOTE | 2018-09-17 11:15 | RAD REPORT ---
EXAM DESCRIPTION: CT - Soft Tissue Neck W/Contr - 09/16/2018 4:32 am CLINICAL HISTORY: The patient is 23 years old and is Female; Swelling;Sore throat;Foriegn Body TECHNIQUE: Axial computed tomography images of the neck with intravenous contrast. Sagittal and co sherif reformatted images were created and reviewed. This CT exam was performed using one or more of the following dose reduction techniques: automated exposure control, adjustment of the mA and/or k V according to patient size, and/or use of iterative reconstruction technique. COMPARISON: No relevant prior studies available. FINDINGS: Oropharynx: Unremarkable. No significant tonsillar enlargement. No peritonsillar abs cess. Hypopharynx: Unremarkable. Larynx: Unremarkable. Normal epiglottis. Trachea: Unremarkable. Retropharyngeal space: Unremarkable. Submandibular/parotid glands: Unremarkable. Glands are normal in size. Thyroid: Unremarkable. No enlarged or calcified nodules. Bones/joints: No acute fracture. Soft tissues: The soft tissues are normal. Vasculature: Unremarkable. Normal in course and caliber. Lymph nodes: Unremarkable. No enlarged lymph nodes. Lung apices: The lung apices are clear. IMPRESSION: Unremarkable contrasted CT of the soft tissues of the neck. Electronically signed by: Yenifer Bailey MD 09/16/2018 3:56 AM CDT Due to temporary technical issues with the PACS/Fluency reporting system, reports are being signed by the in house radiologist as a courtesy to ensure prompt reporting. The interpreting radiologist is f ully responsible for the content of the report.
--- NOTE | 2018-09-17 17:49 | P.PN ---
Subjective Date of Service: 09/17/18 Chief Complaint: palpitations / shortness of breath/ chest pain / febrile Subjective: No C/O voiced, Improving Patient seen and examined at bedside. family at bedside. Chart reviewed and case discussed with nursing staff. Review of Systems 10-point ROS is otherwise unremarkable Physical Examination - Vital Signs Temperature: 98.2 F Blood Pressure: 113/61 Pulse: 94 Respirations: 16 Pulse Ox (%): 94 - Physical Exam General: Alert, In no apparent distress, Oriented x3 HEENT: Atraumatic, PERRLA, EOMI Neck: Supple, JVD not distended Respiratory: Clear to auscultation bilaterally, Normal air movement Cardiovascular: Regular rate/rhythm, Normal S1 S2 Gastrointestinal: Normal bowel sounds, No tenderness Musculoskeletal: No tenderness Integumentary: No rashes Neurological: Normal speech, Normal tone, Normal affect Lymphatics: No axilla or inguinal lymphadenopathy - Studies Microbiology Data (last 24 hrs): 09/15/18 21:37 Throat Culture & Sensitivity - Final Assessment And Plan - Plan - Problems (Diagnosis) (1) History of infectious mononucleosis Current Visit: Yes Status: Acute (2) Sinus tachycardia Current Visit: Yes Status: Acute (3) Chest pain, rule out acute myocardial infarction Current Visit: Yes Status: Acute (4) Pleuritic pain Current Visit: Yes Status: Acute (5) Morbid obesity Current Visit: Yes Status: Acute 1. Serial troponins, negative x2 2. CT of the chest negative for pulmonary embolism 3. Echocardiogram pending 4. Anti-platelet therapy, and may add a low-dose beta-lala 5. recheck labs as well as LFTs with her history of infectious mononucleosis recently 6. GI DVT prophylaxis
[2018-09-17] MEDS: ACETAMINOPHEN 500 MG TAB PO PRN (21:36)
[2018-09-18] MEDS: MORPHINE 4 MG/ML SYR IV PRN (04:20)
--- NOTE | 2018-09-18 08:14 | ECHO ---
HEIGHT: 5 ft 6 in WEIGHT: 229 lb 15.074 oz DATE OF STUDY: 09/17/[address]: Alex Gregory MD 2-DIMENSIONAL: YES M.MODE: YES DOPPLER: YES COLOR FLOW: YES TDS: NO PORTABLE: NO DEFINITY: NO BUBBLE STUDY: NO DIAGNOSIS: CHEST PAIN, TACHYCARDIA CARDIAC HISTORY: CATHERIZATION: NO SURGERY: NO PROSTHETIC VALVE: NO PACEMAKER: NO MEASUREMENTS (cm) DIASTOLIC (NORMALS) SYSTOLIC (NORMALS) IVSd 1.1 (0.6-1.2) LA Diam 3.3 (1.9-4.0) LVEF 71% LVIDd 4.2 (3.5-5.7) LVIDs 2.5 (2.0-3.5) %FS 40% LVPWd 1.1 (0.6-1.2) Ao Diam 2.8 (2.0-3.7) 2 DIMENSIONAL ASSESSMENT: RIGHT ATRIUM: NORMAL LEFT ATRIUM: NORMAL RIGHT VENTRICLE: NORMAL LEFT VENTRICLE: NORMAL TRICUSPID VALVE: NORMAL MITRAL VALVE: NORMAL PULMONIC VALVE: NORMAL AORTIC VALVE: NORMAL PERICARDIAL EFFUSION: NONE AORTIC ROOT: NORMAL LEFT VENTRICULAR WALL MOTION: NORMAL DOPPLER/COLOR FLOW: NORMAL COMMENTS: NORMAL 2D ECHOCARDIOGRAM WITH DOPPLER. TECHNOLOGIST: Taryn QUINTEROS
[2018-09-18] MEDS: NA CHLORIDE 0.9% 1,000 ML IV SCH (09:10)
[2018-09-18 09:34] VITALS: BP 130/74; TEMP 98.2
[2018-09-18] MEDS ORDERED: PANTOPRAZOLE 40 MG INJ IVP ONE (10:23)
[2018-09-18] MEDS ORDERED: SODIUM CHLORIDE 0.9% 10ML INJ IV PRN (10:23)
[2018-09-18] MEDS ORDERED: PHENOL 1.4% ORAL SPRAY 180ML MM PRN (10:24)
[2018-09-18 12:50] VITALS: O2SAT 96
--- NOTE | 2018-09-19 04:37 | DS ---
Date of Discharge: 09/18/2018 Discharge Diagnoses: 1. Sinus tachycardia. 2. Chest pain, acute coronary syndrome ruled out. 3. Pleuritic pain. 4. Morbid obesity. 5. History of infectious mononucleosis. Hospital Course: The patient is a 23-year-old female with no significant past medical history, who recently gave , has had multiple complaints including chest pain, palpitations, shortness of breath, fevers, also recent infectious mononucleosis, who did not complete her prednisone dose. The patient also reports some tachycardia, some laryngitis type symptoms with sore throat. The patient was admitted for further evaluation. She had an extensive workup including CT of the neck which was unremarkable. CT scan chest angio was done which was negative for PE. She did have some mild bilateral lower lobe alveolitis. The patient's symptoms seem to be consistent with gastroesophageal reflux disease and possible sore throat and chronic cough due to acid reflux disease and possible aspiration causing the alveolitis. Echocardiogram was also done to evaluate her tachycardia which was asymptomatic. EF was 71%. There were no wall motion abnormalities. The patient did report anxiety and states that she would have elevated heart rate, tightness in her chest, and would have difficulty swallowing during these periods of anxiety. The patient did ask for medication trial for anxiety. I explained to her that benzodiazepines are a poor choice and are very addicting. She will be on propranolol as needed for her anxiety. Overall, the patient did well. She was able to tolerate her diet. Her symptoms had improved. She was given a trial of PPI to treat possible GERD type symptoms. She will need to establish care with a primary care physician who will need to follow up with her and determine need for further PPI therapy for more than 1 month. She is to return to the ER for worsening condition. Diet: Calorie-restricted. Activity: As tolerated. Medications: As per medication reconciliation list. Physical Examination: General: Awake, alert, oriented x3. No acute distress. Obese female. CV: S1, S2. No murmurs. Respiratory: Moving air well bilaterally. Abdomen: Soft, nontender, nondistended. Positive bowel sounds. Extremities: No clubbing, cyanosis, edema. Neurologic: Nonfocal. SA/MODL Voice ID: [id number] Report ID: [id number] [facility]
[2018-09-19] MEDS ORDERED: PANTOPRAZOLE 40 MG INJ IVP SCH (09:00)
== END 2018-09-18 12:49 | disposition home or self-care (01) ==
LOC: ER 20:48 → ERHOLD 09-16 06:46 → 4TH 09-16 12:10
PROVIDERS: ADMIT Hospitalist; ATTEND Hospitalist
DX: R00.0 Tachycardia, unspecified (principal); R07.9 Chest pain, unspecified; E66.01 Morbid (severe) obesity due to excess calories; Z68.37 Body mass index [BMI] 37.0-37.9, adult
CPT/HCPCS: 36415; 70491; 71045; 71275; 80048; 80053; 81003; 81025; 83735; 84100; 84439; 84443; 84484; 85025; 85379; 85610; 85730; 87070; 87081; 87804; 93005; 93306; 96361; 96365; 96366; 96375; 99285; C9113; G0378; J0696; J7030; Q9967